=== PATIENT | male | born 1980 | race Caucasian/White ===

== ENCOUNTER → 2017-10-14 | Outpatient (REF) | payer MEDICARE, OTHER | LOC: M SFHCLERA 14:05 | DX: J02.9 Acute pharyngitis, unspecified (principal) ==

== ENCOUNTER → 2019-02-15 | Outpatient (REF) | payer MEDICARE, OTHER ==
[~2019-02-15] MED LIST: MOBI4TAB PO
== END ==
LOC: M LAB REF 17:00
PROVIDERS: ATTEND Physician Assistant Medical
DX: J02.9 Acute pharyngitis, unspecified (principal)

== ENCOUNTER 2019-02-19 16:49 | Emergency (ER) | payer MEDICARE, OTHER ==
[~2019-02-19] VITALS: Ht 175.3 cm; Wt 92.0 kg
[2019-02-19] MEDS ORDERED: NAPROXEN 250 MG TAB PO ONE (17:45)
[2019-02-19] MEDS ORDERED: MOBI4TAB PO (17:46)
--- NOTE | 2019-02-19 17:50 | REP ---
Ankle series: Four views. History: Twisting injury. Findings: Four views of the right ankle demonstrate mild anterior soft tissue swelling. Ankle mortise is intact. No fracture is seen. Impression: No fracture noted. Anterior soft tissue swelling. Electronically Signed by Hema Yu MD 02/19/2019 10:35 P
[2019-02-19 17:53] VITALS: BP 110/63
== END 2019-02-19 18:00 | disposition home or self-care (01) ==
LOC: M ED 16:49
DX: S93.401A Sprain of unspecified ligament of right ankle, initial encounter (principal); X50.1XXA Overexertion from prolonged static or awkward postures, initial encounter; Y92.094 Garage of other non-institutional residence as the place of occurrence of the external cause; Y93.9 Activity, unspecified; Y99.9 Unspecified external cause status

== ENCOUNTER → 2023-03-03 | Outpatient (REF) | payer OTHER | LOC: M LAB REF 21:11 | PROVIDERS: ATTEND Physician Assistant | DX: J02.9 Acute pharyngitis, unspecified (principal) ==

== ENCOUNTER → 2024-05-10 | Outpatient (CLI) | payer OTHER | LOC: M WUC 12:46 | PROVIDERS: ATTEND Physician Assistant | DX: R05.3 Chronic cough (principal) ==

== ENCOUNTER → 2024-08-05 | Outpatient (CLI) | payer OTHER | LOC: M RAD 17:05 | PROVIDERS: ATTEND Nurse Practitioner Adult Health | DX: Z65.5 Exposure to disaster, war and other hostilities (principal) ==

== ENCOUNTER → 2024-08-08 | Outpatient (CLI) | payer OTHER ==
[~2024-08-08] MED LIST changes: +METHACHOLINE KIT (6 VIAL.NEB PREMIX) INH ONE
== END ==
LOC: M CARPUL 14:41
PROVIDERS: ATTEND Nurse Practitioner Adult Health
DX: R06.02 Shortness of breath (principal)
CPT/HCPCS: 94070; J7674